=== PATIENT | female | born 1950 | race Two or more races ===

== ENCOUNTER 2025-03-23 19:15 | Emergency (ER) | payer MEDICAID, SELFPAY ==
--- NOTE | 2025-03-23 19:29 | XR_ITS ---
Examination: Wrist, left 3 views Technique: Wrist AP, oblique, lateral 3 views Date and time of exam: March 23, 2025, 1934 hours INDICATIONS: Patient fell today with injury to the wrist, wrist pain. FINDINGS: Severe osteopenia Acute impacted intra-articular fracture distal radial metaphysis mild dorsal displacement of the main distal radial fracture fragment Ulnar styloid tip fracture Carpal bones intact IMPRESSION: Acute impacted intra-articular fracture distal radial metaphysis
[2025-03-23 20:01] VITALS: BP 193/80; PULSE 74; RESP 19; TEMP 36.8; O2SAT 97
[2025-03-23 20:02] VITALS: BMI 22.1
--- NOTE | 2025-03-23 21:00 | PD.EDHAND ---
Upper Extremity Injury RME/HPI General Chief Complaint: Hand/Wrist Problems Stated Complaint: LEFT WRIST INJURY, S/P FALL Time Seen by Provider: 03/23/25 20:51 Arrival date/time: 03/23/25 19:15 75F with history of HTN presents to ED with L wrist pain after trip and fall. Patient denies hitting her head and any other injuries. Limitations: no limitations Related Data Previous Rx's ?Medication ?Instructions ?Recorded bumetanide 1 mg tablet 1 mg PO QDAY #30 tabs 01/27/22 epoetin zara 4,000 unit/mL 4,000 unit subcut QWEEK #10 mL 01/27/22 injection solution (Epogen) telmisartan 40 mg tablet 40 mg PO BID #60 tabs 01/27/22 hydrocodone 5 mg-acetaminophen 325 1 tab PO BID PRN pain #14 tabs 03/23/25 mg tablet Allergies Allergy/AdvReac Type Severity Reaction Status Date / Time No Known Allergies Allergy Verified 03/23/25 19:16 Review of Systems Review of Systems Systems Reviewed: All systems reviewed, normal except as documented Musculoskeletal Musculoskeletal: Reports as per HPI and Reports arthralgias Past Medical History Social History SMOKING STATUS: Former smoker ED Exam General Limitations: Present no limitations General appearance: Present alert and in no apparent distress Head Head exam: Present atraumatic Neck Neck exam: Present normal inspection, full ROM and trachea midline Chest Chest inspection: Present normal inspection and symmetric chest wall rise Expanded Upper Extremity Exam Forearm/Wrist exam: Present tenderness (L), swelling and deformity Neurological Exam Neurological exam: Present alert and oriented X3 Psychiatric Psychiatric exam: Present normal affect and normal mood Skin Skin exam: Present warm, dry, intact and normal color Course Quality Measures none Orders Category Date Time Status Splint / Immobilizer STAT Care 03/23/25 20:52 Active XR wrist comp LT min 3V Stat Exams 03/23/25 19:29 Completed HYDROcodone*/APAP 5/325 [[place] 5/325] Med 03/23/25 20:59 Discontinued 1 tab PO X1 ONE Vital Signs Vital signs: Vital Signs Temperature 98.2 F 03/23/25 20:01 Pulse Rate 74 03/23/25 20:01 Respiratory Rate 19 03/23/25 20:01 Blood Pressure 193/80 H 03/23/25 20:01 Pulse Oximetry (%) 97 03/23/25 20:01 Oxygen Delivery Method Room Air 03/23/25 20:01 O2 at 97% on RA and WNLs Extremity Injury MDM Narrative MDM Narrative:: 75F with history of HTN presents to ED with L wrist pain after trip and fall. Patient denies hitting her head and any other injuries. Physical exam reveals L wrist tenderness and swelling with reduced ROM and mild deformity. Distal pulses present. Cap refill normal. Patient is afebrile, calm, and alert. XR reveals intra-articular fx with mild displacement. Spoke to Dr. Barbour, ED MD, who states reduction is not necessary. Given splint, meds, sling, and career placement services counselor. Patient data External records reviewed:: [facility] previous records Clinical information provided by:: patient Social determinants that could affect healthcare access:: none Patient has the following chronic illnesses:: none How is presenting disease/condition affected by chronic disease/condition?: no chronic disease Evaluation data The following diagnostics were reviewed and interpreted by me:: radiology exam(s) Lab and/or radiology exams considered but not ordered:: ordered Interpretation Summary: above Medications / Prescriptions Medications or Prescriptions considered but not ordered:: ordered Medication administrations:: Medication Administration History Discontinued Medications Hydrocodone Bitart/Acetaminophen (Hydrocodone/[place] 5/325 Tablet) 1 tab PO X1 ONE Stop: 03/23/25 21:00 above Consultations Consultation(s) initiated? (list below): No Diagnosis Upper Extremity Injury Differential Diagnosis: sprain and strain of wrist, fracture of wrist, finger sprain, dislocation of finger, Colles' fracture and fracture of hand Most likely diagnosis given after review of the tests above:: wrist fx Admission Indicated Admission indicated?: not indicated Admission Request Was there a request for admission?: No Disposition Plan Disposition Plan: Discharge Discharge Attestation Discharge Attestation: The patient and all family members were given an opportunity to ask questions and understood the discharge instructions. Discharge instructions specifically effects, indications for sooner follow up or return to the emergency department, and the expected course of current diagnosis. Patient condition: Stable Discharge Plan Plan Patient Disposition: HOME (Self Care) Discharge Disposition comment: Stable Prescriptions/Referrals Prescriptions/Med Rec: New hydrocodone-acetaminophen 5-325 mg tablet 1 tab PO BID MDD 2 PRN (Reason: pain) Qty: 14 0RF No Action Epogen 4,000 unit/mL solution 4,000 unit subcut QWEEK Qty: 10 0RF telmisartan 40 mg tablet 40 mg PO BID Qty: 60 0RF bumetanide 1 mg tablet 1 mg PO QDAY Qty: 30 0RF Problem List Clinical Impression: Fracture of wrist Patient/Caregiver Discharge Instructions Education Materials: ED Fracture, Wrist, General Additional Instructions: Please follow-up with PCP within 24-48 hours and return immediately if symptoms worsen. See PCP for referral to ortho. Make sure to bring disk. Print Language: Portuguese Stand Alone Forms: Patient Portal Info Letter PA/QUALITY ASSURANCE ASSESSOR Supervising Physician PA/QUALITY ASSURANCE ASSESSOR Supervising Physician: Dr. Barbour
[2025-03-23] MEDS: HYDROcodone/APAP 5/325 TABLET 1 TAB PO (21:30)
== END 2025-03-23 21:44 | disposition home or self-care (01) ==
LOC: SERX 21:10
PROVIDERS: Emergency Provider Emergency Medicine
DX: S52.572A Other intraarticular fracture of lower end of left radius, initial encounter for closed fracture (principal); W01.0XXA Fall on same level from slipping, tripping and stumbling without subsequent striking against object, initial encounter
CPT/HCPCS: 29125; 73110; 99283; A9270